=== PATIENT | female | born 2000 | race Hispanic/Latino ===

== ENCOUNTER 2019-10-27 19:48 | Emergency (ER) | payer SELFPAY ==
[~2019-10-27] VITALS: Ht 162.6 cm; Wt 108.9 kg
--- OUTSIDE RECORDS SUMMARY | 2019-10-27 19:50 | XMS REPORT ---
Author Author [facility] t Organization [facility] Address [address] [place] [address] Phone Unavailable Care Team Providers Care Leather Carver Name Role Phone Baron Melendrez Attphys LATOSHA FONSECA M.D. Attphys Unavailable JOSEFA VALDES M.D. Attphys Unavailable Alon Harry Attphys Problems Condition Name Condition Details Condition Category Status Onset Date Resolution Date Last Treatment Date Treating Clinician Comments Source DX: S83.281A=OTHER TEAR OF LATERAL MENIS DX: S83.281A=OTHER TEAR OF LATERAL MENIS Active 08/30/2018 [facility] Diagnosis Active 2018-08-30 00:00:00 2019-01-24 17:30:00 [facility] Acute lateral meniscal tear, right, initial encounter Acute lateral meniscal tear, right, initial encounter Problem Active [facility] Encounter for gynecological examination with Papanicol aou smear of cervix Encounter for gynecological examination with Papanicolaou smear of cervix Problem Active [facility] Vaginal discharge Vaginal discharge Problem Active [facility] Candidiasis of vulva and vagina Candidiasis of vulva and vagina Pro blem Active [facility] Dysmenorrhea Dysmenorrhea Problem Active [facility] Allergies, Adverse Reactions, Alerts Allergy Name Allergy Type Status Severity Reaction(s) Onset Date Inacti ve Date Treating Clinician Comments Source No Known Medication Allergies No Known Medication Allergies Active [facility] Family History Family Member Diagnosis Comments Start Date Stop Date Source Unknown Family Member Family history of diabetes mellitus Family Hist ory [facility] Unknown Family Member Family history of Heart trouble Family History [facility] Unknown Family Member Family history of hypertension Family History [facility] Unknown Family Member Family history of malignant neoplasm o f breast Family History [facility] Unknown Family Member Family history of pancreatic cancer Family Hist ory [facility] Social History Social Habit Start Date Stop Date Quantity Comments Source Social History 2016-07-20 01:32:21 2016-07-20 01:32:21 [facility] Medications Ordered Medication Name Filled Medication Name Start Date Stop Da te Current Medication? Ordering Clinician Indication Dosage Frequency Signature (SIG) Comments Components Source clindamycin 300 mg oral capsule 2019-08-01 23:12:00 Yes 300 mg = 1 cap, PO, Q6H, X 10 day, # 40 cap, 0 Refill(s), Pharmacy: [id number] Sulfamethoxazole 800 MG / Trimethoprim 160 MG Oral Tablet [B actrim] 2019-07-28 23:33:00 Yes 1 tab, PO, BID, X 10 day, # 20 tab, 0 Refill(s), Pharmacy: [facility] #[id number] [facility] metroNIDAZOLE 500 MG Oral Tablet metroNIDAZOLE 500 MG Oral T ablet 2018-12-14 00:00:00 Yes COMFORT UGHANZE M.D. Q0.5D TAKE 1 TABLET T WICE DAILY [facility] Fluconazole 150 MG Oral Tablet Fluconazole 150 MG Oral Table t 2018-12-10 00:00:00 Yes COMFORT UGHANZE M.D. TAKE 1 TABLET 1 TIME ONLY. [facility] Loestrin Fe 1/20 1-20 MG-MCG Oral Tablet Loestrin Fe 1 /20 1-20 MG-MCG Oral Tablet 2018-12-10 00:00:00 Yes COMFORT UGHANZE M.D. 1 QD TAKE 1 TABLET DAILY. [facility] naproxen 500 mg oral enteric coated delayed-release tablet 2017-10-15 19:27:00 Yes 500 mg = 1 tab, PO, BID, PRN Pain, X 15 day, # 30 tab, 0 Refill(s), [facility]acy: [id number] Vital Signs Vital Name Observation Time Observation Value Comments Source Systolic (mm Hg) 2019-08-01 22:42:00 [facility] ed[facility] Diastolic (mm Hg) 2019-08-01 22:42:00 [facility] Heart Rate 2019-08-01 22:42:00 Medic al Group Respitory Rate 2019-08-01 22:42:00 Med ical Group Height 2019-08-01 22:42:00 162.56 cm Medic al Group Weight 2019-08-01 22:42:00 Medic al Group BMI Calculated 2019-08-01 22:42:00 Med ical Group Systolic (mm Hg) 2019-07-28 23:03:00 M edical Group Diastolic (mm Hg) 2019-07-28 23:03:00 Medical Group Heart Rate 2019-07-28 23:03:00 Medic al Group Respitory Rate 2019-07-28 23:03:00 Med ical Group Temperature Oral (F) 2019-07-28 23:03:00 96.7 F Medical Group Height 2019-07-28 23:03:00 165.1 cm Medic al Group Weight 2019-07-28 23:03:00 Medic al Group BMI Calculated 2019-07-28 23:03:00 Med ical Group BP Systolic 2018-12-10 08:34:00 124 mm[Hg] Location: CANDACE; Linette on: Sitting [facility] BP Diastolic 2018-12-10 08:34:00 80 mm[Hg] Location: BRIAN Sue on: Sitting [facility] Height 2018-12-10 08:34:00 64 [in_us] [facility] Weight 2018-12-10 08:34:00 260 [lb_av] [facility] Body Mass Index Calculated 2018-12-10 08:34:00 44.63 kg/m2 [facility] Heart Rate 2018-12-10 08:34:00 95 /min [facility] Weight 2017-10-15 19:02:00 Medic al Group BMI Calculated 2017-10-15 19:02:00 Med ical Group Height 2017-10-15 19:02:00 162.56 cm Medic al Group Systolic (mm Hg) 2017-10-15 19:02:00 M edical Group Diastolic (mm Hg) 2017-10-15 19:02:00 Medical Group Heart Rate 2017-10-15 19:02:00 Medic al Group Temperature Oral (F) 2017-10-15 19:02:00 98.4 F [facility] Group Procedures Procedure Date / Time Performed Performing Clinician [facility] e Incision and drainage of abscess (eg, ca rbuncle, suppurative hidradenitis, cutaneous or subcutaneous abscess, cyst, furuncle, or paronychia); simple or single 2019-08-01 23:12:00 [facility] Group . [facility] - PAP 2018-12-10 00:00:[address] [place] [address] [facility] [U] XRAY KNEE 3 VWS RIGHT [id number] 2018-08-30 00:00:00 [facility] MR Knee wo contrast [id number] 2018-08-30 [facility] Start Date/Time End Date/Time Encounter Type Admission Type Attendi [facility] Care Department Encounter ID Source 2018-08-31 14:37:49 Outpatient MHSE [facility]SE [id number] [facility]SE 2019-08-01 22:30:00 2019-08-02 05:59:59 Outpatient [facility] [id number] [facility] 2019-08-01 16:30:00 2019-08-01 23:59:59 Outpatient Letty Melendrez [facility] [id number] 2019-08-01 16:30:00 2019-08-01 16:30:00 Outpatient MHIEA LT MHIEALT [id number] [facility] 2019-07-28 23:00:00 2019-07-29 05:59:59 Outpatient [facility] [id number] [facility] 2019-07-28 17:00:00 2019-07-28 23:59:59 Outpatient [facility]MG [facility] [id number] 2019-07-28 17:00:00 2019-07-28 17:00:00 Outpatient MHIEA LT [facility]IEALT [id number] [facility] 2018-12-10 08:30:00 2018-12-10 08:30:00 Appointment; NATHAN FONSECA M.D. UGHANZE, COMFORT, M.D. [facility] [id number] [facility] 2018-08-30 11:00:00 2018-08-30 11:00:00 Appointment; JOSEFA VALDES M.D. CRUMBIE, DAVID, M.D. [facility] [place] [id number] [facility] 2017-10-15 18:45:00 2017-10-16 04:59:59 Outpatient [facility] [id number] Medical Group 2017-10-15 13:45:00 2017-10-15 23:59:59 Outpatient Karina Harry [facility] [id number] 2017-10-15 13:45:00 2017-10-15 13:45:00 Outpatient MHIEA LT MHIEALT [id number] [facility] 2016-07-19 19:20:00 2016-07-19 19:20:00 Outpatient MHIEA LT [facility]IEALT [id number] [facility] Results Test Description Test Time Test Comments Results Result Comments Source . [facility] - PAP 2018-12-10 00:00:00 Test Item PAP REPORT (test code = 81328-2) See Comment [facility][U] XRAY KNEE 3 VWS RIGHT [id number] 11:32:00 Images acquired, not reported on this accession number.[facility] [id number] 19:43:00Large *ABN*(10/15/17 2:43 PM) Medical GroupURINE AND [id number] 19:43:00Negative *NA*(10/15/17 2:43 PM) Medical GroupURINE AND [id number] 19:43:00Negative *NA*(10/15/17 2:43 PM) Medical GroupURINE AND [id number] 19:43:00Negative *NA*(10/15/17 2:43 PM) Medical GroupURINE AND [id number] 19:43:00* Test Item Value Reference Range Interpretation Comments POC UA pH (test code = POC UA pH) 5.5 1 5.0-8.0 Medical GroupURINE AND [id number] 19:43:00>=1.030 *ABN*(10/15/17 2:43 PM) Medical GroupURINE AND [id number] 19:43:00Cloudy *ABN*(10/15/17 2:43 PM) Medical GroupURINE AND [id number] 19:43:00Amber *ABN*(10/15/17 2:43 PM) Medical GroupURINE AND [id number] 19:43:000.2MH [facility]
--- OUTSIDE RECORDS SUMMARY | 2019-10-27 19:50 | XMS REPORT | Summary of Care ---
Author Author SONNY FONSECA M.D. [facility] Unknown Address Unknown Phone Unavailable Care Team Providers Care Assistant Center Manager Name Role Phone RAYMUNDO Smith, COMFORT Unavailable Unavailable Alejandrina Pierce R.N. Unavailable Unavailable KEISHA MENDOZA MD, JOSEFA Saenz Unavailable Unavailable RAYMUNDO MONTEMAYOR GA, COMFORT Unavailable Unavailable Unavailable Unavailable Functional Status Name Dates Details Functional status health issues are not documented Status: Name Dates Details Cognitive status health issues are not d ocumented Status: Problems Name Dates Details Acute lateral meniscal tear, right, init ial encounter (836.1, S83.281A) Status: Active Encounter for routine gynecological exam ination (V72.31, Z01.419) Status: Active Vaginal discharge (623.5, N89.8) Status: Active Candidiasis of vulva and vagina (112.1, B37.3) Status: Active Dysmenorrhea (625.3, N94.6) Status: Active Encounter for gynecological examination with Papanicolaou smear of cervix (V72.31, Z01.419) Status: Active Medications Name Dates Details None - No Current Medications Active Fluconazole 150 MG Oral Tablet TAKE 1 TABLET 1 TIME ONLY. * Quantity: 1 Refills: 3 UGHANZE M.D., COMFORT * Start : 10-Dec-2018 Active Loestrin Fe 06/17 1-20 MG-MCG Oral Tablet TAKE 1 TABLET DAILY. * Quantity: 1 Refills: 12 UGHANZE M.D., COMFORT * Start : 10-Dec-2018 Active 28 Tablet Pack metroNIDAZOLE 500 MG Oral Tablet TAKE 1 TABLET TWICE DAILY * Quantity: 14 Refills: 0 UGHANZE M.D., COMFORT * Start : 14-Dec-2018 Active Allergies and Adverse Reactions Name Dates Details No Known Drug Allergies (Allergy) Status : Active Past Medical History Name Dates Details History of No significant past medical h istory Status: Resolved Procedures Procedure Dates Details History of No history of surgery Complet ed Immunization Name Dates Details Immunizations not documented Family History Name Dates Details Family history of diabetes mellitus (V18 .0, Z83.3) Comments: Family History Status: Active Family history of Heart trouble (429.9, I51.9) Comments: Family History Status: Active Family history of hypertension (V17.49, Z82.49) Comments: Family History Status: Active Family history of malignant neoplasm of breast (V16.3, Z80.3) Comments: Family History Status: Active Family history of pancreatic cancer (V16 .0, Z80.0) Comments: Family History Status: Active Social History Name Dates Details Unknown if ever smoked Vital Signs Date Test Result Details :34 BP Systolic 124 mm[Hg] Status: Comments: Lo cation: LUE; Position: Sitting BP Diastolic 80 mm[Hg] Status: Comments: Lo cation: LUE; Position: Sitting Height 64 in Status: Weight 260 lb Status: Body Mass Index Calculated 44.63 kg/m2 Status: Body Surface Area Calculated 2.19 m2 Status: Heart Rate 95 /min Status: Results Date Description Value Details :00 . Blane - TOMASZ Comments: Department of Pathology & Laboratory Medicine For: MS 2.[address] [place] [address] [address] [address] Phone: [phone] [facility] Email: [email or web address] Thin Prep EndocervicalCervical LMP: 11/07/2018 Clinical History: Vaginal discharge Routine Statement of Adequacy:Satisfactory for evaluation.Endocervical/transformation component present. Diagnosis:Atypical squamous cells of undetermined significance. (ASC-US)Reactive cellular changes are present. Medical Numerical Control Operator: Kathy William Electronically Signed ([id number]) Comment:Severe inflammation is noted. VPMTrichomonas~NegativeGardnerella~PositiveCandida~NegativeThe Affirm VPIII Microbial Identification Test for Eloisa species (C. albicans, C.glabrata, C. kefyr, C. krusei, C. parapsilosis, C. tropicalis) can detect 1 x 10(4) CFUof Eloisa species in log phase per assay, 2 x 10(5) CFU of G. vaginalis in log phase perassay and 5 x 10(3) , and trichomonads (T. vaginalis) per assay. A negative test resultdoes not exclude the possibility of vaginitis/vaginosis. As in many clinical situations,diagnosis should not be based on the results of a single laboratory test. Results shouldbe interpreted in conjunction with other clinical and laboratory data available to theclinician such as pH, amine odor, clue cells and vaginal discharge characteristics.Simultaneous infections by more than one organism are common.Disclaimer:Testing is performed using FDA-approved Affirm SCROLL SAW OPERATOR III Microbial Identification system,i.e., nucleic acid hybridization. The assay has been validated/verified by the [facility] of the [place] Department of Pathology & Laboratory Medicine. The performance of this test on patient specimens collected during or immediately afterantimicrobial therapy is unknown. The presence or absence of Eloisa species, G.vaginalis or T. vaginalis cannot be used as a test for therapeutic success or failure.Velma Mccloud MD, PhD HPV if ASC-USHigh Risk~NegativeTesting is performed using FDA-approved APTIMA HPV assay (i.e., Electric Sign Wirer-mediatedamplification of E6/E7 viral mRNA followed by hybridization protection assay). Thisassay is designed to detect the 14 high-risk types of human papillomavirus (HPV Types 16,18, 31, 33, 35, 39, 45, 51, 52, 56, 58, 59, 66 and 68) known to cause cervical cancer. The assay has been reported to detect more than 90% of CIN3+, an immediate precursor tocarcinoma in situ. A negative result does not exclude the possibility of cytologicabnormalities or of future or underlying CIN2, CIN3, or cancer. Personal lubricantscontaining polyquaternium 15 and antifungal medications containing tioconazole mayinterfere with the assay performance. In vitro transcripts from low-risk HPV , 67, 70 and 82 exhibited cross- reactivity with the assay. The test result must beinterpreted along with the patient's cytology history, other risk factors and otherpertinent laboratory data. The results of this test are not intended to substitute forregular cervical cytology screening. The assay performance has not been evaluated forHPV vaccinated individuals. The effects of other potential variables, such as vaginaldischarge, use of tampons, etc. and specimen collection variables have not beenevaluated.This assay has been validated by the [facility] Department of Pathology and Laboratory Medicine.Velma Mccloud MD, PhD The pap smear is a screening test used as an aid in detecting cervical cancer and itsprecursors. Published data indicates that pap smear testing is subject to false negativeand false positive results. For this reason, periodic repeat testing and follow up of anyunexplained clinical signs and symptoms is recommended.This slide was screened with the aid of the ThinPrep Imaging System. PAP REPORT Plan of Care Name Dates Details Planned Observations Planned Goals not documented Interventions Provided Medication Changes* metroNIDAZOLE 500 MG Oral Tablet - Start Instructions Name Dates Details Instructions not documented Encounters Appointment; JOSEFA VALDES M.D. Encounter Diagnosis: Problem not documented On: 30-Aug-2018 11:00 Appointment; LATOSHA FONSECA M.D. Encounter Diagnosis: Problem not documented On: 10-Dec-2018 8:30
--- OUTSIDE RECORDS SUMMARY | 2019-10-27 19:50 | XMS REPORT | Summary of Care ---
Author Author [facility] Organization [facility] Primary Care [facility] Address Unknown Phone Unavailable Encounter HQ Siri(FIN) [id number] Date(s): 08/01/19 - 08/01/19 [facility] Primary Care [facility] [address] [place] [address]- [phone] Discharge Disposition: Home or Self Care Attending Physician: Calvin Melendrez MD Vital Signs Most recent to 1 oldest [Reference Range]: Height 162.56 cm (08/01/19 4:42 PM) Blood Pressure 135/91 mmHg [90-140/60-90 mmHg] (08/01/19 4:42 PM) Respiratory Rate 18 BRMIN [14-20 BRMIN] (08/01/19 4:42 PM) Peripheral Pulse 107 bpm Rate [60-100 bpm] *HI* (08/01/19 4:42 PM) Weight 112.5 kg (08/01/19 4:42 PM) Body Mass Index 42.57 m2 (08/01/19 4:42 PM) Problem List Condition Effective Dates Status Health Status Informan t Streptococcal sore 01/23/14 Resolved throat1 1Data migrated from [employer] on 12/12/14. Allergies, Adverse Reactions, Alerts No Known Medication Allergies Medications clindamycin 300 mg oral capsule 300 mg = 1 cap, PO, Q6H, X 10 day, # 40 cap, 0 Refill(s), Pharmacy: [facility] #[id number] Start Date: 08/01/19 Stop Date: 08/11/19 Status: Ordered Results No data available for this section Immunizations Given and Recorded Vaccine Date Status Refusal Reason diphtheria/pertussis, acel/tetanus adult 08/01/19 Given Procedures Procedure Date Related Diagnosis Body Site Status Incision and drainage of abscess (eg, 08/01/19 Completed carbuncle, suppurative hidradenitis, cutaneous or subcutaneous abscess, cyst , furuncle, or paronychia); simple or sin gle Social History Social History Type Response Alcohol Never Smoking Status Never smoker; Exposure to T obacco Smoke None; Cigarette Smoking Last 365 Days No; Reg Smoking Cessation Counseli ng No entered on: 08/01/19 Assessment and Plan No data available for this section
--- OUTSIDE RECORDS SUMMARY | 2019-10-27 19:50 | XMS REPORT | Summary of Care ---
Author Author [facility] Organization [facility] Address Unknown Phone Unavailable Encounter KEATON Horner(FIN) [id number] Date(s): 10/15/17 - 10/15/17 [facility] Primary Care [facility] [address] [place], [place] [address] [phone] Discharge Disposition: Home or Self Care Attending Physician: Curt Harry MD Vital Signs Most recent to 1 oldest [Reference Range]: Height 162.56 cm (10/15/17 2:02 PM) Temperature Oral 98.4 DegF [96.4-99.1 DegF] (10/15/17 2:02 PM) Blood Pressure 135/79 mmHg [90-140/60-90 mmHg] (10/15/17 2:02 PM) Peripheral Pulse 101 bpm Rate [60-100 bpm] *HI* (10/15/17 2:02 PM) Weight 127.955 kg (10/15/17 2:02 PM) Body Mass Index 48.42 m2 (10/15/17 2:02 PM) Problem List Condition Effective Dates Status Health Status Informan t Streptococcal sore 01/23/14 Resolved throat1 1Data migrated from [employer] on 12/12/14. Allergies, Adverse Reactions, Alerts Substance Reaction Severity Status NKDA1 Active 1Data migrated from [employer] on 07/31/15. Originally documented as NKA. Medications naproxen 500 mg oral enteric coated delayed-release tablet 500 mg = 1 tab, PO, BID, PRN Pain, X 15 day, # 30 tab, 0 Refill(s), Pharmacy: [id number] Start Date: 10/15/17 Stop Date: 10/30/17 Status: Ordered Results URINE AND STOOL Most recent to 1 oldest [Reference Range]: POC UA Turbidity Cloudy [Clear] *ABN* (10/15/17 2:43 PM) POC UA Color Elda [Yellow] *ABN* (10/15/17 2:43 PM) POC UA pH [5.0-8.0] 5.5 (10/15/17 2:43 PM) POC UA SG [<=1.030] >=1.030 *ABN* (10/15/17 2:43 PM) POC UA Glu [Negative 100 mg/dL mg/dL] *NA* (10/15/17 2:43 PM) POC UA Bld Large [Negative] *ABN* (10/15/17 2:43 PM) POC UA Ket [Negative Negative mg/dL mg/dL] *NA* (10/15/17 2:43 PM) POC UA Prot 30 mg/dL [Negative mg/dL] *ABN* (10/15/17 2:43 PM) POC UA Uro [0.1-1.0 0.2 EU/dL EU/dL] (10/15/17 2:43 PM) POC UA Bili Negative [Negative] *NA* (10/15/17 2:43 PM) POC UA LeukEst Negative [Negative] *NA* (10/15/17 2:43 PM) POC UA Nit Negative [Negative] *NA* (10/15/17 2:43 PM) Immunizations No data available for this section Procedures No data available for this section Social History Social History Type Response Alcohol Never Smoking Status Never smoker; Concerns abou t tobacco use in household: No; Exposure to Tobacco Smoke None; Cigarette Smoking L ast 365 Days No; Reg Smoking Cessation Counseling No entered on: 10/15/17 Assessment and Plan No data available for this section
--- OUTSIDE RECORDS SUMMARY | 2019-10-27 19:50 | XMS REPORT | Continuity of Care Document ---
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 [facility] Medications Medication Details Route Status Patient Instructions Ordering Provider Order Date Source clindamycin 300 mg oral capsule 300 mg = 1 cap, PO, Q6H, X 10 day, # 40 cap, 0 Refill(s), Pharmacy: [facility][id number] Active 08/01/2019 [facility] Sulfamethoxazole 800 MG / Trimethoprim 1 60 MG Oral Tablet [Bactrim] 1 tab, PO, BID, X 10 day, # 20 tab, 0 Re fill(s), Pharmacy: [facility] #[id number] Active 07/28/2019 [facility] naproxen 500 mg oral enteric coated lacy yed-release tablet 500 mg = 1 tab, PO, BID, PRN Pain, X 15 day, # 30 tab, 0 Refill(s), Pharmacy: [facility] [id number] Active 10/15/2017 [facility] Allergies, Adverse Reactions, Alerts Substance Category Reaction Severity Reaction type Status Date Reported Comments Source No Known Medication Allergies Assertion Drug aller gy [facility] Immunizations Immunization Date Given Site Status Last Updated Comments Source diphtheria/pertussis, acel/tetanus adult 08/01/2019 Left Deltoid completed [facility] Results Order Name Results Value Reference Range Date Interpretation Comments Source URINE AND STOOL POC UA Bld Large *ABN* (10/15/17 2:43 PM) Negative 10/15/2017 [facility] URINE AND STOOL POC UA Bili Negative *NA* (10/15/17 2:43 PM) Negative 10/15/2017 [facility] URINE AND STOOL POC UA LeukEst Negative *NA* (10/15/17 2:43 PM) Negative 10/15/2017 [facility] URINE AND STOOL POC UA Nit Negative *NA* (10/15/17 2:43 PM) Negative 10/15/2017 [facility] URINE AND STOOL POC UA pH 5.5 5.0 - 8.0 10/15/2017 [facility] URINE AND STOOL POC UA SG >=1.030 *ABN* (10/15/17 2:43 PM) <=1.030 10/15/2017 [facility] URINE AND STOOL POC UA Turbidity Cloudy *ABN* (10/15/17 2:43 PM) Clear 10/15/2017 [facility] URINE AND STOOL POC UA Color Elda *ABN* (10/15/17 2:43 PM) Yellow 10/15/2017 [facility] URINE AND STOOL POC UA Ket Negative mg/dL Negative mg/dL 10/15/2017 [facility] URINE AND STOOL POC UA Glu 100 mg/dL Negative mg/dL 10/15/2017 [facility] URINE AND STOOL POC UA Uro 0.2 0.1 - 1.0 10/15/2017 [facility] URINE AND STOOL POC UA Prot 30 mg/dL Negative mg/dL 10/15/2017 [facility] Pathology Reports No Data Provided for This Section Diagnostic Reports No Data Provided for This Section Consultation Notes No Data Provided for This Section Discharge Summaries No Data Provided for This Section History and Physicals No Data Provided for This Section Vital Signs Vital Sign Value Date Comments Source Systolic (mm Hg) 135 08/01/2019 [facility] Diastolic (mm Hg) 91 08/01/2019 [facility] Heart Rate 107 08/01/2019 [facility] Respitory Rate 18 08/01/2019 [facility] Height 162.56 cm 08/01/2019 [facility] Weight 112.5 08/01/2019 [facility] BMI Calculated 42.57 08/01/2019 [facility] Systolic (mm Hg) 138 07/28/2019 [facility] Diastolic (mm Hg) 79 07/28/2019 [facility] Heart Rate 95 07/28/2019 [facility] Respitory Rate 18 07/28/2019 [facility] Temperature Oral (F) 96.7 F 07/28/2019 [facility] Height 165.1 cm 07/28/2019 [facility] Weight 113.352 07/28/2019 [facility] BMI Calculated 41.58 07/28/2019 [facility] Weight 127.955 10/15/2017 [facility] BMI Calculated 48.42 10/15/2017 [facility] Height 162.56 cm 10/15/2017 [facility] Systolic (mm Hg) 135 10/15/2017 [facility] Diastolic (mm Hg) 79 10/15/2017 [facility] Heart Rate 101 10/15/2017 [facility] Temperature Oral (F) 98.4 F 10/15/2017 [facility] Encounters Location Location Details Encounter Type Encounter Number Reason For Visit Attending Provider ADM Date DC Date Status Source Outpatient [id number] SARANYA HARRY 07/19/2016 [facility] Outpatient [id number] ABRAZ ISMAIL 10/15/2017 [facility] Outpatient [id number] Saranya Harry 10/15/2017 10/16/2017 [facility] Outpatient [id number] 07/28/2019 [facility] Outpatient [id number] 07/28/1907/29/2019 [facility] Outpatient [id number] Abrar Ismail 08/01/2019 [facility] Outpatient [id number] Abrar Ismail 08/01/2019 08/02/2019 [facility] Procedures Procedure Code Date Perfomer Comments Source Incision and drainage of abscess (eg, ca rbuncle, suppurative hidradenitis, cutaneous or subcutaneous abscess, cyst, furuncle, or paronychia); simple or single [id number] 08/01/2019 [facility] Assessment and Plan No Data Provided for This Section Plan of Care No Data Provided for This Section Social History Social History Date Source Social History TypeResponse Alcohol Never Smoking Status Never smoker; Exposure to Tobacco Smoke None; Cigarette Smoking Last 365 Days No; Reg Smoking Cessation Counseling No entered on: 08/01/19 07/20/2016 [facility] Family History No Data Provided for This Section Advance Directives No Data Provided for This Section Functional Status No Data Provided for This Section
--- OUTSIDE RECORDS SUMMARY | 2019-10-27 19:50 | XMS REPORT | Summary of Care ---
Author Author [facility] Organization [facility] Primary [facility] Address Unknown Phone Unavailable Encounter KEATON Horner(FIN) [id number] Date(s): 07/28/19 - 07/28/19 [facility] Primary Care [facility] [address] [place] [address]- [phone] Discharge Disposition: Home or Self Care Vital Signs Most recent to 1 oldest [Reference Range]: Height 165.1 cm (07/28/19 5:03 PM) Temperature Oral 96.7 DegF [96.4-99.1 DegF] (07/28/19 5:03 PM) Blood Pressure 138/79 mmHg [90-140/60-90 mmHg] (07/28/19 5:03 PM) Respiratory Rate 18 BRMIN [14-20 BRMIN] (07/28/19 5:03 PM) Peripheral Pulse 95 bpm Rate [60-100 bpm] (07/28/19 5:03 PM) Weight 113.352 kg (07/28/19 5:03 PM) Body Mass Index 41.58 m2 (07/28/19 5:03 PM) Problem List Condition Effective Dates Status Health Status Informan t Streptococcal sore 01/23/14 Resolved throat1 1Data migrated from [employer] on 12/12/14. Allergies, Adverse Reactions, Alerts No Known Medication Allergies Medications Bactrim DS 800 mg- 160 mg oral tablet 1 tab, PO, BID, X 10 day, # 20 tab, 0 Refill(s), Pharmacy: [facility] #[id number] Start Date: 07/28/19 Stop Date: 08/07/19 Status: Ordered Results No data available for this section Immunizations No data available for this section Procedures No data available for this section Social History Social History Type Response Alcohol Never Smoking Status Never smoker; Ready to keys ge: No; Concerns about tobacco use in household: No; Exposure to Tobacco Smoke None; Cig arette Smoking Last 365 Days No; Reg Smoking Cessation Counseling No entered on: 07/28/19 Assessment and Plan No data available for this section
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
--- NOTE | 2019-10-27 22:26 | Diagnostic Imaging Report ---
X-ray right elbow 3 views HISTORY: Pain. COMPARISON: None available. FINDINGS: Bones: No acute displaced fracture. Osseous alignment is within normal limits. Joints: The joint spaces are well-maintained. Soft tissues: Mild soft tissue edema IMPRESSION: No acute radiographic osseous abnormality. Mild soft tissue edema Signed by: Santos Da Silva DO on 10/27/2019 10:23 PM
--- NOTE | 2019-10-27 22:26 | Diagnostic Imaging Report ---
X-ray pelvis 1 view and right hip 2 views HISTORY: Pain. COMPARISON: None available. FINDINGS: Bones: No acute displaced fracture. Osseous alignment is within normal limits. Joints: The joint spaces are well-maintained. Soft tissues: The soft tissues appear unremarkable. IMPRESSION: No acute radiographic abnormality. Signed by: Santos Da Silva DO on 10/27/2019 10:22 PM
== END 2019-10-27 22:40 | disposition home or self-care (01) ==
LOC: ER 19:48
DX: M25.521 Pain in right elbow (principal); M25.551 Pain in right hip; S50.01XA Contusion of right elbow, initial encounter; S70.01XA Contusion of right hip, initial encounter; V43.62XA Car passenger injured in collision with other type car in traffic accident, initial encounter; Y92.488 Other paved roadways as the place of occurrence of the external cause; E11.9 Type 2 diabetes mellitus without complications
CPT/HCPCS: 81025; 99283